=== PATIENT | male | born 1995 ===

== ENCOUNTER 2016-11-23 18:25 | Emergency (ER) | payer OTHER ==
[2016-11-23] MEDS ORDERED: Ibuprofen TAB* 600 MG PO ONE (19:44)
--- NOTE | 2016-11-23 20:07 | UC ---
Hand/Wrist HPI - HPI Summary HPI Summary: left index finger injury approx 5pm today. Pt states he was skateboarding, "caught some air", came down and hit a plastic ball that is on the [place] [facility] and then braced his fall onto concrete with his right wrist. Denies right wrist pain. Denies head injury or LOC. Denies neck pain and back pain. But states the left index finger was off at an angle and he yanked on it and put it back in place. Pt has an open area on the medial aspect of the left index PIP with bleeding controlled. Pt went to [facility] and they iced and splinted the finger and advised pt to come here. Pt is currently on doxycycline for Lyme disease and has taken his med today. - History Of Current Complaint Chief Complaint: EDExtremityUpper Stated Complaint: FINGER INJURY Time Seen by Provider: 11/23/16 19:32 Hx Obtained From: Patient, Family/[employer] - female friend Onset/Duration: Sudden Onset, Lasting Hours, Still Present Severity Initially: Moderate Severity Currently: Moderate Pain Intensity: 6 Pain Scale Used: 0-10 Numeric Character Of Pain: Sharp Aggravating Factor(s): Movement Alleviating: Nothing Associated Signs And Symptoms: Positive: Swelling, Bruising. Negative: Numbness /Tingling Related History: Dominant Hand Right - Allergies/Home Medications Allergies/Adverse Reactions: Allergies Allergy/AdvReac Type Severity Reaction Status Date / Time No Known Allergies Allergy Verified 11/23/16 19:09 Home Medications: Home Medications Doxycycline (Rosacea) [Doxycycline] 40 mg PO 11/23/16 [History] Ibuprofen [Advil] 200 mg PO 11/23/16 [History] PMH/Surg Hx/FS Hx/Imm Hx Previously Healthy: Yes Endocrine History Of: Denies: Diabetes, Thyroid Disease Cardiovascular History Of: Denies: Cardiac Disorders, Hypertension Respiratory History Of: Denies: COPD, Asthma GI/ History Of: Denies: Ulcer - Surgical History Surgical History: None - Family History Known Family History: Positive: Hypertension - Social History Occupation: Student Alcohol Use: Weekly Substance Use Type: Marijuana Smoking Status (MU): Never Smoked Tobacco Review of Systems Constitutional: Negative Skin: Other - open wound left index Eyes: Negative ENT: Negative Respiratory: Negative Cardiovascular: Negative Gastrointestinal: Negative Genitourinary: Negative Motor: Other - swelling, ecchymosis at PIP, 2mm open wound at PIP Neurovascular: Negative Musculoskeletal: Negative Neurological: Negative Psychological: Negative All Other Systems Reviewed And Are Negative: Yes Physical Exam Triage Information Reviewed: Yes Appearance: Well-Appearing, Well-Nourished, Pain Distress Vital Signs: Initial Vital Signs Temp 99.4 F 11/23/16 19:02 Pulse 90 11/23/16 19:02 Resp 16 11/23/16 19:02 BP 135/59 11/23/16 19:02 Pulse Ox 99 11/23/16 19:02 elevated BP noted Vital Signs Reviewed: Yes Eyes: Positive: Conjunctiva Clear ENT: Positive: Normal ENT inspection Neck: Positive: Supple, Nontender Respiratory: Positive: Chest non-tender, Lungs clear, Normal breath sounds, No respiratory distress Cardiovascular: Positive: RRR, No Murmur, Pulses Normal, Brisk Capillary Refill Abdomen Description: Positive: Nontender, No Organomegaly, Soft. Negative: Distended, Guarding, Hepatomegaly, McBurney's Point Tenderness, Peritoneal Signs , Pulsatile Mass, Splenomegaly Bowel Sounds: Positive: Present Musculoskeletal: Positive: Strength Intact, ROM Intact, Other: - swelling ecchymosis at PIP left index finger Neurological: Positive: Alert, Muscle Tone Normal Psychological Exam: Normal Skin: Positive: Other - 2mm open area left index finger PIP Hand/Wrist Course/Dx - Course Course Of Treatment: 21 yo M with traumatic injury to left index finger today while skateboarding, describes reducing the finger immediately after impact, was splinted by [facility] and referred here, has open area at site of dislocation. Pt on doxycycline for Lyme ds. Wound cleansed and irrigated. Discussed with Dr. Bradley, who recommends IV Rocephin, splint, continue doxycycline and definite follow up with their office in the am. - Differential Dx/Diagnosis Differential Diagnosis/HQI/PQRI: Abrasion, Dislocation, Fracture, Sprain, Strain Provider Diagnoses: open avulsion fracture, reported dislocation, now reduced, of left index PIP joint Discharge - Discharge Plan Condition: Stable Disposition: HOME Patient Education Materials: Finger Fracture (ED), Finger Dislocation (ED) Forms: *Gen. Provider Communication Referrals: Cora aTveras DO [Primary Care Provider] - Israel Rodriguez MD [Medical Doctor] - 1 Day (call this number in the am, and arrange to be seen tomorrow by Dr. Bradley or Dr. Rodriguez. We spoke to Dr. Bradley operations supervisor chemical cleaning about you tonight. ) Additional Instructions: You were given one gram of ceftriaxone IV tonight for treatment of a possible open fracture/reduced dislocation. You were also given ibuprofen 600mg for pain at 8:30pm. You may take ibuprofen 600mg every six hours as needed for pain. We spoke with Dr. Bradley and their office will see you in follow up tomorrow. Keep the splint in place until you are seen by the orthopedist. Continue your doxycycline. Go to the emergency room if you have any new or worsening symptoms.
--- NOTE | 2016-11-23 20:11 | RAD ---
INDICATION: Report of a dislocated left index finger proximal interphalangeal joint, now with laceration. TECHNIQUE: 3 views of the left index finger were obtained. FINDINGS: On the lateral view there is a bony focus just anterior to the left index finger proximal interphalangeal joint. At the anterior proximal corner of the middle phalanx there is a broad flattening of the cortex indicating this bony focus may be an avulsion fracture. Remaining visualized bones are intact and properly aligned. IMPRESSION: POSSIBLE AVULSION FRACTURE INVOLVING THE ANTERIOR PROXIMAL LEFT INDEX FINGER MIDDLE PHALANX DESCRIBED ABOVE.
[2016-11-23] MEDS ORDERED: cefTRIAXone VIAL(*) 1,000 MG VIAL IVPB ONE (20:35)
[2016-11-23] MEDS ORDERED: cefTRIAXone VIAL(*) 1,000 MG VIAL ONE (20:43)
[2016-11-23 21:27] VITALS: BP 126/67
== END 2016-11-23 21:27 | disposition home or self-care (01) ==
LOC: UCEAST 18:25
DX: S62.611B Displaced fracture of proximal phalanx of left index finger, initial encounter for open fracture (principal); W19.XXXA Unspecified fall, initial encounter; Y93.51 Activity, roller skating (inline) and skateboarding; Y92.214 College as the place of occurrence of the external cause
CPT/HCPCS: 73140; 99213; A9270-GY; G0463; J0696